=== PATIENT | female | born 1965 | race Caucasian/White ===

== ENCOUNTER 2019-03-16 18:02 | Emergency (ER) | payer OTHER ==
--- NOTE | 2019-03-16 19:29 | RAD REPORT ---
EXAM DESCRIPTION: CT - [id number] - 03/16/2019 7:19 pm COMPARISON: None. TECHNIQUE: Axial 5 mm thick images of the head were obtained. Axial 2 mm thick images of the cervic al spine were obtained with sagittal and coronal reconstruction images generated and reviewed. All CT scans are performed using dose optimization technique as appropriate and may include automated exposure control or mA/KV adjustment according to patient size. FINDINGS: No intracranial hemorrhage, mass, edema or acute intracranial finding. No suspicion for ac vicki infarction. No extra-axial fluid collections. Mastoid air cells and paranasal sinuses are clear. No globe or orbit abnormality seen. No skull fracture. Cervical body height and alignment are normal. Mild disc space narrowing at C5-6. No fracture or acut e bony abnormality. Central canal detail is inherently limited. No paraspinal mass or hematoma. IMPRESSION: Negative CT head examination for acute or significant finding. Mild cervical spine degenerative change C5-6. No fracture or acute finding. Central canal detail is i nherently limited.
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
[2019-03-16 20:06] VITALS: BP 152/65; TEMP 98; O2SAT 100
== END 2019-03-16 19:55 | disposition home or self-care (01) ==
LOC: ER 18:02
DX: S16.1XXA Strain of muscle, fascia and tendon at neck level, initial encounter (principal); M25.561 Pain in right knee; F41.9 Anxiety disorder, unspecified; V49.9XXA Car occupant (driver) (passenger) injured in unspecified traffic accident, initial encounter
CPT/HCPCS: 70450; 72125; 99284